=== PATIENT | female | born 1990 | race Caucasian/White ===

== ENCOUNTER 2018-12-03 11:15 | Emergency (ER) | payer SELFPAY ==
[2018-12-03 11:27] VITALS: BP 119/80
--- NOTE | 2018-12-03 11:36 | UC ---
Skin Complaint HPI - HPI Summary HPI Summary: 28 yo female presents with bug bites to right leg. She tells me that she does not remember being bitten by anything or having an insect/tick attached, but last night noticed a red false pass with central bug bite to her right calf and right thigh. Areas are not painful or itchy. [place] often. Denies fever, chills, headache, dizziness, joint pain/swelling. - History of Current Complaint Chief Complaint: UCGeneralIllness Time Seen by Provider: 12/03/18 11:36 Stated Complaint: INSECT BITES Hx Obtained From: Patient Hx Last Menstrual Period: 12/03/18 Onset/Duration: Gradual Onset Current Severity: None Pain Intensity: 0 - Allergy/Home Medications Allergies/Adverse Reactions: Allergies Allergy/AdvReac Type Severity Reaction Status Date / Time No Known Allergies Allergy Verified 12/03/18 11:20 Home Medications: Home Medications NK [No Home Medications Reported] 12/03/18 [History Confirmed 12/03/18] PMH/Surg Hx/FS Hx/Imm Hx - Additional Past Medical History Additional PMH: None - Surgical History Surgical History: None - Family History Known Family History: Positive: Non-Contributory - Social History Occupation: Employed Full-time Lives: With Family Alcohol Use: Occasionally Substance Use Type: Marijuana Smoking Status (MU): Light Every Day Tobacco Smoker Review of Systems All Other Systems Reviewed And Are Negative: No Constitutional: Positive: Negative Skin: Positive: Other - Bug bite right leg Respiratory: Positive: Negative Cardiovascular: Positive: Negative Neurological: Positive: Negative Psychological: Positive: Negative Physical Exam - Summary Physical Exam Summary: GENERAL: NAD. WDWN. No pain distress. SKIN: LEFT calf: 1.0cm diameter rash with mild erythema and central bug bite. Left thigh with similar appearing lesion. NTTP. No induration, streaking, open wound, or drainage. No central clearing. NECK: Supple. Nontender. No lymphadenopathy. CHEST: No accessory muscle use. Breathing comfortably and in no distress. CV: Pulses intact. Cap refill <2seconds NEURO: Alert. PSYCH: Age appropriate behavior. Triage Information Reviewed: Yes Vital Signs: Initial Vital Signs Temp 98.3 F 12/03/18 11:21 Pulse 95 12/03/18 11:21 Resp 16 10/01/19 11:21 BP 119/80 12/03/18 11:21 Pulse Ox 100 12/03/18 11:21 Vital Signs Reviewed: Yes Course/Dx - Course Course Of Treatment: Suspect insect bite. Low suspicion for tick bite at this time as the areas do not appear typical of a bull's eye rash. Discussed this with pt and advised watchful waiting. The areas will likely resolve without treatment, but if she notices the areas starting to expand or develops other symptoms to return and be rechecked - Diagnoses Provider Diagnosis: Insect bite Discharge ED - Sign-Out/Discharge Documenting (check all that apply): Patient Departure All imaging exams completed and their final reports reviewed: No Studies - Discharge Plan Condition: Stable Disposition: HOME Referrals: No Primary Care Phys,NOPCP [Primary Care Provider] - Additional Instructions: If you develop a fever, shortness of breath, chest pain, new or worsening symptoms - please call your PCP or go to the ED immediately. As we discussed at your visit, the rash does not appear to be from a tick bite and will likely resolve without issue. Please monitor the area and if the rash expands or changes over the next 5 days - please return to be rechecked - Billing Disposition and Condition Condition: STABLE Disposition: Home - Attestation Statements Provider Attestation: I was available for consult Chart reviewed francine
== END 2018-12-03 12:07 | disposition home or self-care (01) ==
LOC: UCEAST 11:15
DX: S80.861A Insect bite (nonvenomous), right lower leg, initial encounter (principal); W57.XXXA Bitten or stung by nonvenomous insect and other nonvenomous arthropods, initial encounter; Y92.9 Unspecified place or not applicable; F17.210 Nicotine dependence, cigarettes, uncomplicated
CPT/HCPCS: 99201; G0463